=== PATIENT | male | born 1945 | race Caucasian/White ===

== ENCOUNTER → 2017-10-23 | Emergency (ER) | payer OTHER, BC ==
[~2017-10-23] VITALS: Ht 172.7 cm; Wt 68.1 kg
[~2017-10-23] MED LIST: FLOMAX0.4 MG PO; GLUCOPHAGE500 MG PO; HYZAAR 50-121 TABLE1 GT; HYZAAR 50-121 TABLET PO; PERCOCET 5/31 TABLET PO; ZETIA10 MG PO; ZOFRAN4 MG PO
[2017-10-23 09:34] LABS: BASOPHIL (%) 0.5 % (0-1); EOSINOPHIL (%) 3.8 % (0-5); EOSINOPHIL COUNT 0.2 K/uL (0-0.3); HEMATOCRIT 37.9 % (38.0-50.0); HEMOGLOBIN 13.3 G/DL (12.5-16.6); IMMATURE GRANULOCYTE (%) 0.5 % (0.0-0.7); LYMPHOCYTE (%) 22.1 % (15-42); LYMPHOCYTE COUNT 1.4 K/uL (1.0-2.8); MCH 28.7 PG (29.0-34.0); MCHC 35.1 G/DL (30.0-36.0); MCV 81.9 FL (86-99); MONOCYTE (%) 8.8 % (3-12); MONOCYTE COUNT 0.6 K/uL (0-0.8); NEUTROPHIL (%) 64.3 % (45-76); NEUTROPHIL COUNT 4.1 K/uL (1.8-6.4); PLATELET COUNT 145 K/uL (156-360); RBC DIS.WIDTH-CV 16.7 % (11.8-14.6); RBC DIS.WIDTH-SD 49.7 % (39-53); RED BLOOD COUNT 4.63 M/uL (4.00-5.50); WHITE BLOOD COUNT 6.3 K/uL (4.1-10.2)
[2017-10-23 09:40] LABS: INTER. NORMALIZED RATIO 1.6
[2017-10-23 09:46] LABS: ALBUMIN 4.1 g/dL (3.2-4.8); CHLORIDE 102 mEq/L (99-109); POTASSIUM 4.1 mEq/L (3.7-5.4); SODIUM 137 mEq/L (136-147)
[2017-10-23 09:48] LABS: GLUCOSE 133 mg/dL (70-99); TOTAL PROTEIN 7.2 g/dL (6.4-8.3)
[2017-10-23 09:50] LABS: TOTAL BILIRUBIN 0.6 mg/dL (0.0-1.0)
[2017-10-23 09:52] LABS: ALKALINE PHOSPHATASE 86 IU/L (3-129); CREATININE 1.4 mg/dL (0.6-1.3); GFR ESTIMATE (CALCULATED) 53 mL/min/ (58.99-99999)
[2017-10-23 09:53] LABS: UREA NITROGEN (BUN) 22 mg/dL (9-23)
[2017-10-23 09:54] LABS: AST (GOT) 44 IU/L (2-34)
[2017-10-23 09:55] LABS: ALT (GPT) 62 IU/L (3-49); LIPASE 39 U/L (1.0-51.0)
[2017-10-23 10:52] LABS: APPEARANCE CLEAR ((CLEAR)); BILIRUBIN NEGATIVE; BLOOD NEGATIVE; COLOR STRAW ((YELLOW)); GLUCOSE (STRIP) 50; KETONES NEGATIVE; LEUKOCYTES NEGATIVE; NITRITE NEGATIVE; PROTEIN (STRIP) 30; SPECIFIC GRAVITY 1.012 (1.000-1.030); UROBILINOGEN 0.2 MG/DL (0.2-1.0)
[2017-10-23 12:05] VITALS: BP 156/88
== END | disposition home or self-care (01) ==
LOC: EME 08:35
PROVIDERS: Emergency Medicine
DX: N20.1 Calculus of ureter (principal); E11.9 Type 2 diabetes mellitus without complications; E78.5 Hyperlipidemia, unspecified; I10 Essential (primary) hypertension; Z79.84 Long term (current) use of oral hypoglycemic drugs; Z79.01 Long term (current) use of anticoagulants
CPT/HCPCS: 74177; 80053; 81003; 83690; 85025; 85610; J2405; J3010; J7030